=== PATIENT | female | born 1995 | race Caucasian/White ===

== ENCOUNTER → 2017-01-14 | Outpatient (REF) | payer OTHER | LOC: M SFHCCLAY 08:46 | PROVIDERS: ATTEND Nurse Practitioner | DX: Z12.4 Encounter for screening for malignant neoplasm of cervix (principal); N89.8 Other specified noninflammatory disorders of vagina ==

== ENCOUNTER → 2018-06-02 | Outpatient (REF) | payer OTHER | LOC: M SFHCCLAY 14:42 | DX: Z12.4 Encounter for screening for malignant neoplasm of cervix (principal) | CPT/HCPCS: 88142 ==

== ENCOUNTER → 2019-03-06 | Outpatient (REF) | payer OTHER | LOC: M LAB REF 15:57 | PROVIDERS: ATTEND Ophthalmology | DX: H04.012 Acute dacryoadenitis, left lacrimal gland (principal) ==

== ENCOUNTER → 2019-06-26 | Outpatient (REF) | payer OTHER | LOC: M SFHCCLAY 19:37 | PROVIDERS: ATTEND Nurse Practitioner Family | DX: Z01.419 Encounter for gynecological examination (general) (routine) without abnormal findings (principal) ==

== ENCOUNTER → 2019-07-10 | Outpatient (CLI) | payer OTHER ==
[~2019-07-10] MED LIST: E-Z-GAS II EFFERVESCENT PACKET (SODIUM BICARB./CITRIC ACID/SIMETHICONE) As Ordered ONE; E-Z-HD 98% w/w 340GM SUSP BTL As Ordered ONE; E-Z-PAQUE 96% w/w SUSP 176GM BTL As Ordered ONE
--- NOTE | 2019-07-11 09:54 | REP ---
UPPER GI AIR CONTRAST The procedure was performed under the direct supervision of Dr. Richards. The images were reviewed with Dr. Richards. The stitcher feeder film shows no organomegaly or pathological masses. The test gas pattern is nonspecific. Liquid barium and gas producing granules and given in the erect position as well as liquid barium in the prone oblique position in order to perform a double contrast upper GI examination. The oral and pharyngeal stages of deglutition are unremarkable. Esophageal transport is prompt and efficient and there is no esophagitis stricture mucosal ring or hiatal hernia. There is gastroesophageal reflux demonstrated to above the level of the denia. The stomach sotelo are normally aligned. The rugal folds are smooth and regular. There is no gastritis neoplasm or ulcer disease. The duodenal sotelo are normally aligned. The mucosal folds are smooth and regular. There is no duodenitis pancreatitis peptic ulcer disease or neoplasm. The visualized portion of the proximal small bowel appears normal in course and caliber. Impression: There is gastroesophageal reflux demonstrated to above the level of the denia. Otherwise, unremarkable double contrast upper GI examination. 1.3 minutes of fluoroscopy time was utilized for this procedure. Electronically Signed by MICHELLE Macedo 07/10/2019 04:33 P Electronically Signed by Adam Richards MD 07/11/2019 09:44 A
== END ==
LOC: M RAD 08:33
PROVIDERS: ATTEND Nurse Practitioner Family
DX: K21.9 Gastro-esophageal reflux disease without esophagitis (principal)

== ENCOUNTER → 2020-05-29 | Outpatient (REF) | payer OTHER ==
[2020-06-29 10:41] LABS: BASO % 0.5 % (0.0-1.0); EOS # 0.1 10^3/uL (0.0-0.5); EOS % 0.9 % (0.0-3.0); HEMATOCRIT 42.1 % (36.0-47.0); LYMPH # 2.1 10^3/uL (1.5-5.0); LYMPH % 32.3 % (24.0-44.0); MEAN CORPUSCULAR HEMOGLOBIN 28.3 pg (27.0-33.0); MEAN CORPUSCULAR HGB CONC 33.3 g/dl (32.0-36.5); MEAN CORPUSCULAR VOLUME 85.1 fl (80.0-96.0); MONO # 0.5 10^3/uL (0.0-0.8); MONO % 7.7 % (0.0-5.0); NEUTROPHILS # 3.7 10^3/uL (1.5-8.5); NEUTROPHILS % 58.4 % (36.0-66.0); PLATELET COUNT, AUTOMATED 283 10^3/uL (150-450); RED BLOOD COUNT 4.95 10^6/uL (4.00-5.40); WHITE BLOOD COUNT 6.4 10^3/uL (4.0-10.0)
[2020-07-13 07:13] LABS: ALBUMIN 4.4 GM/DL (3.2-5.2); ALT/SGPT 18 U/L (12-78); BILIRUBIN,TOTAL 0.5 MG/DL (0.2-1.0); BLOOD UREA NITROGEN 11 MG/DL (7-18); CALCIUM LEVEL 9.3 MG/DL (8.5-10.1); CARBON DIOXIDE LEVEL 29 MEQ/L (21-32); CHLORIDE LEVEL 105 MEQ/L (98-107); CREATININE FOR GFR 0.82 MG/DL (0.55-1.30); FREE T4 0.99 NG/DL (0.76-1.46); GLOMERULAR FILTRATION RATE > 60.0 (>60); GLUCOSE, FASTING 96 MG/DL (70-100); HCG, SERUM QUALITATIVE NEGATIVE (NEGATIVE); HEMOGLOBIN A1c 5.2 %; POTASSIUM SERUM 3.6 MEQ/L (3.5-5.1); SODIUM LEVEL 140 MEQ/L (136-145); TOTAL PROTEIN 8.2 GM/DL (6.4-8.2)
== END ==
LOC: M SFHCCLAY 06:09
PROVIDERS: ATTEND Nurse Practitioner Family
DX: R63.4 Abnormal weight loss (principal); R53.83 Other fatigue

== ENCOUNTER → 2020-07-01 | Outpatient (REF) | payer OTHER ==
[2020-07-02 16:31] LABS: CHLAMYDIA DNA AMPLIFICATION NEGATIVE (NEGATIVE); GC DNA AMPLIFICATION NEGATIVE (NEGATIVE)
== END ==
LOC: M SFHCADAM 13:27
PROVIDERS: ATTEND Nurse Practitioner Family
DX: Z12.72 Encounter for screening for malignant neoplasm of vagina (principal)

== ENCOUNTER → 2020-07-11 | Outpatient (CLI) | payer OTHER ==
[2020-07-11 13:48] LABS: BASO % 0.3 % (0.0-1.0); EOS % 0.1 % (0.0-3.0); HEMATOCRIT 39.3 % (36.0-47.0); HEMOGLOBIN 12.9 g/dl (12.0-15.5); LYMPH # 1.7 10^3/uL (1.5-5.0); LYMPH % 25.9 % (24.0-44.0); MEAN CORPUSCULAR HEMOGLOBIN 27.8 pg (27.0-33.0); MEAN CORPUSCULAR HGB CONC 32.8 g/dl (32.0-36.5); MEAN CORPUSCULAR VOLUME 84.7 fl (80.0-96.0); MONO # 0.6 10^3/uL (0.0-0.8); MONO % 8.5 % (0.0-5.0); NEUTROPHILS # 4.3 10^3/uL (1.5-8.5); NEUTROPHILS % 64.9 % (36.0-66.0); PLATELET COUNT, AUTOMATED 263 10^3/uL (150-450); RED BLOOD COUNT 4.64 10^6/uL (4.00-5.40); WHITE BLOOD COUNT 6.7 10^3/uL (4.0-10.0)
[2020-07-11 14:41] LABS: HEPATITIS C VIRUS ABY INDEX 0.1 INDEX (<0.8); HIV 1&2 SCREEN CENTAUR NEGATIVE (NEGATIVE)
== END ==
LOC: M PLALAB 10:45
PROVIDERS: ATTEND Advanced Practice Midwife
DX: Z34.01 Encounter for supervision of normal first pregnancy, first trimester (principal); Z3A.00 Weeks of gestation of pregnancy not specified

== ENCOUNTER → 2020-09-26 | Outpatient (CLI) | payer OTHER ==
--- NOTE | 2020-09-26 11:51 | REP ---
INDICATION: ANATOMY. COMPARISON: None TECHNIQUE: Real-time sonographic evaluation of the gravid uterus performed. FINDINGS: Estimated gestational age is19 weeks 0 days, EDC 02/20/2021. Today's measurements indicate appropriate growth. Presentation: Transverse head maternal left side Placenta posterior, grade 0, without evidence of placenta previa. heart rate is recorded at 150 beats per minute. Amniotic fluid is subjectively normal. Closed cervical length is measured at 3.5 cm. Biometry chart: BPD: 43 mm, 18 weeks 6 days, 46th percentile. HC: 157 mm, 18 weeks 4 days, 39th percentile AC: 129 mm, 18 weeks 3 days, 39th percentile Femur length: 29 mm, 18 weeks 6 days, 47th percentile HC to AC ratio: 1.22, normal range 1.06-1.25. Estimated weight: 252g, 28th percentile. anatomy: Cranium: Grossly normal Lateral Ventricles/Choroid Plexus: Grossly normal Posterior Fossa/Cerebellum: Grossly normal Nose/lips/profile: Not well seen due to position Four chamber heart: Grossly normal Right ventricular outflow tract: Not well seen due to position Left ventricular outflow tract: Grossly normal Left-sided stomach: Grossly normal Kidneys: Grossly normal Bladder: Grossly normal Cord Insertion: Grossly normal 3 vessel cord: Grossly normal Spine: Grossly normal IMPRESSION: Viable single intrauterine gestation as above. <Electronically signed by Adam Richards > 09/26/20 [id number]
== END ==
LOC: M WHC 09:40
PROVIDERS: ATTEND Advanced Practice Midwife
DX: Z34.82 Encounter for supervision of other normal pregnancy, second trimester (principal)

== ENCOUNTER → 2020-10-24 | Outpatient (CLI) | payer OTHER ==
--- NOTE | 2020-10-24 08:22 | REP ---
INDICATION: F/U ANATOMY COMPARISON: 09/26/2020 TECHNIQUE: Transabdominal obstetrical ultrasound with color Doppler evaluation. FINDINGS: Examination demonstrates a single live intrauterine in cephalic presentation. motion is identified by technologist. Placenta is noted posterior and grade 1 without evidence for placenta previa or abruption. Amniotic fluid volume is normal. Cervix measures 3.4 cm in length and appears closed. No evidence for nuchal cord. Gestational age by LMP 23 weeks 0 days with NANNETTE 02/20/2021. Gestational age by current measurements 22 weeks 4 days with NANNETTE 02/23/2021. FHR equals 142 beats per minute. Estimated weight 521 grams (26thpercentile). Anatomical assessment demonstrates normal structures including cranium, facial features including nose/lips, right cardiac outflow tract, stomach, cord insertion/three-vessel cord, bladder, spine. IMPRESSION: Single live intrauterine in cephalic presentation demonstrating appropriate interval growth. In conjunction with prior examination anatomical assessment is complete and normal. <Electronically signed by Gerardo Dowell > 10/24/20 [id number]
== END ==
LOC: M WHC 07:37
PROVIDERS: ATTEND Obstetrics & Gynecology
DX: Z34.02 Encounter for supervision of normal first pregnancy, second trimester (principal); Z3A.22 22 weeks gestation of pregnancy

== ENCOUNTER → 2020-11-15 | Outpatient (REF) | payer OTHER ==
[2020-11-15 13:49] LABS: HEMATOCRIT 35.1 % (36.0-47.0); HEMOGLOBIN 11.5 g/dl (12.0-15.5); MEAN CORPUSCULAR HEMOGLOBIN 29.2 pg (27.0-33.0); MEAN CORPUSCULAR HGB CONC 32.8 g/dl (32.0-36.5); MEAN CORPUSCULAR VOLUME 89.1 fl (80.0-96.0); PLATELET COUNT, AUTOMATED 202 10^3/uL (150-450); RED BLOOD COUNT 3.94 10^6/uL (4.00-5.40); WHITE BLOOD COUNT 9.3 10^3/uL (4.0-10.0)
== END ==
LOC: M PLALAB 08:16
PROVIDERS: ATTEND Advanced Practice Midwife
DX: Z34.82 Encounter for supervision of other normal pregnancy, second trimester (principal)

== ENCOUNTER → 2021-01-22 | Outpatient (REF) | payer OTHER | LOC: M SFHCWAGY 13:22 | PROVIDERS: ATTEND Advanced Practice Midwife | DX: Z36.85 Encounter for antenatal screening for Streptococcus B (principal) | CPT/HCPCS: 87081; G0463 ==

== ENCOUNTER 2021-02-25 15:35 | Inpatient (IN) | payer OTHER ==
[2021-02-25] VITALS (13 sets, daily range): BP systolic 127–148; BP diastolic 69–95
[~2021-02-25] VITALS: Ht 165.1 cm; Wt 87.8 kg
[2021-02-25] MEDS ORDERED: PRENTAB9 PO (15:53)
[2021-02-25] MEDS: miSOPROStol 50MCG 1/2 TABLET SL SCH ×2 (17:52→21:53)
[2021-02-25 18:09] LABS: HEMOGLOBIN 12.6 g/dl (12.0-15.5); MEAN CORPUSCULAR HEMOGLOBIN 27.9 pg (27.0-33.0); MEAN CORPUSCULAR HGB CONC 33.2 g/dl (32.0-36.5); MEAN CORPUSCULAR VOLUME 84.3 fl (80.0-96.0); PLATELET COUNT, AUTOMATED 206 10^3/uL (150-450); RED BLOOD COUNT 4.51 10^6/uL (4.00-5.40); WHITE BLOOD COUNT 10.6 10^3/uL (4.0-10.0)
--- NOTE | 2021-02-25 18:26 | HPEPDOC ---
Obstetrical History & Physical General Date of Admission February 25, 2021 at 15:35 History of Present Illness 25 yo G1 at 40 5/7 weeks by LMP c/w 7 weeks ultrasound (EDC=02/20/2021) presents for labor induction. She denies contractions, vaginal bleeding. good movement. 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 BREAST: . ABDOMEN: Gravid and non-tender to touch. FETUS: Is vertex (VTX) by sterile vaginal examination (SVE), fetus is vertex (VTX) by Nishant. HEART RATE: Regular rate and rhythm. LUNGS: Clear to auscultation (CTA). EXTREMITIES: No edema. No clonus. Deep tendon reflexes (DTRs) + . Vital Signs/I&O Vital Signs Date Time Temp Pulse Resp B/P (MAP) Pulse Ox O2 Delivery O2 Flow Rate FiO2 02/25/21 16:10 98.9 80 140/69 (92) Laboratory Data 24H LABS Laboratory Tests 2 02/25/21 16:42: Serology Scanned Report Hepatitis B Testing 02/25/21 17:41: Nucleated Red Blood Cells % (auto) 0.0 CBC/BMP Laboratory Tests 02/25/21 17:41 Pertinent Laboratoy Data Group B Streptococcus: Negative Vaginal Examination Dilation: 2cm Effacement: 50% Station: -2 Cervical Consistency: Soft Cervical Position: Posterior Presentation: Cephalic presentation Assessment Variability: Moderate Accelerations: Positive Decelerations: None Tocometer Contractions: Yes Frequency: irregular Assessment/Plan Assessment Pt is a 25-year-old (G)1 para (P)0 at 40+5 weeks by LMP c/w 7-week ultrasound presents to Labor and Delivery for labor induction. Plan Admit and orient. Carry Out Clerk And Shelf Stocker and consent. Diet: regular. Group B Streptococcus (GBS) negative. Labs and intravenous (IV) per unit protocol. Anticipate [normal spontaneous delivery (). C-S as appropriate. JOANA CHASE MD February 25, 2021 18:26
[2021-02-25] MEDS ORDERED: FENTANYL 2MCG/ML ROPIVACAINE 0.2% IN 0.9% NACL 100ML IVBAG As Ordered ONE (23:00)
[2021-02-25] MEDS ORDERED: FENTANYL/ROPIVACAINE/NACL BAG 100 ML EPIDURAL SCH (23:15)
[2021-02-25] MEDS ORDERED: diphenhydrAMINE 50MG/ML VIAL (J1200) IV PRN (23:15)
[2021-02-25] MEDS ORDERED: NALOXONE INJ 0.4MG/1ML VIAL (J2310 PER 1MG) IV PRN (23:15)
[2021-02-25] MEDS ORDERED: EPIDURAL COMMENT XX SCH (23:15)
[2021-02-25] MEDS ORDERED: ONDANSETRON 4MG/2ML VIAL IV PRN (23:15)
[2021-02-25] MEDS ORDERED: EPIDURAL/PCA KEYS XX PRN (23:15)
[2021-02-25] MEDS ORDERED: ePHEDrine SULFATE 25 MG/5 ML(5MG/ML) SYRINGE IV PRN (23:15)
[2021-02-25] MEDS ORDERED: REFRIGERATOR IV KEYS XX PRN (23:15)
[2021-02-25] MEDS ORDERED: LACTATED RINGER'S 1000 ML IV PRN (23:15)
[2021-02-26] VITALS (9 sets, daily range): BP systolic 117–144; BP diastolic 60–86
[2021-02-26] MEDS ORDERED: OXYTOCIN 30 UNITS IN 0.9% NaCl 500ML IV BAG (J2590) As Ordered ONE (02:53)
[2021-02-26] MEDS ORDERED: LR 1,000 ML IV ONE (03:15)
[2021-02-26] MEDS ORDERED: LR 1,000 ML IV SCH (04:00)
[2021-02-26 05:59] LABS: CORD GAS ABE V -5.4; CORD GAS HCO3 A 20.5 MEQ/L; CORD GAS HCO3 V 20.6 MEQ/L; CORD GAS O2 SAT A 44.1 %; CORD GAS O2 SAT V 63.9 %; CORD GAS PCO2 A 53.6 mmHg; CORD GAS PCO2 V 41.6 mmHg; CORD GAS PH A 7.201 UNITS; CORD GAS PH V 7.312 UNITS; CORD GAS PO2 A 22.5 mmHg; CORD GAS PO2 V 28.6 mmHg; CORD GAS SBC V 19.3 MEQ/L; CORD GAS TCO2 A 22.2 MEQ/L; CORD GAS TCO2 V 21.8 MEQ/L
[2021-02-26] MEDS ORDERED: LIDOCAINE 1% MDV 50ML VIAL As Ordered ONE (06:02)
[2021-02-26] MEDS ORDERED: ONDANSETRON 4MG/2ML VIAL IV PRN (06:20)
[2021-02-26] MEDS ORDERED: IBUPROFEN 600MG TAB PO PRN (06:20)
[2021-02-26] MEDS ORDERED: ACETAMINOPHEN TAB 650MG DOSE (2X325MG) PO PRN (06:20)
[2021-02-26] MEDS ORDERED: MEASLES,MUMPS,RUBELLA VACCINE INJ (MMR-II) (90707) SC SCH (06:20)
[2021-02-26] MEDS ORDERED: LIDOCAINE 1% MDV 20ML VIAL INFIL ONE (06:20)
[2021-02-26] MEDS ORDERED: OXYTOCIN DRIP 30 UNITS in IV 1 EA IV ONE (06:20)
[2021-02-26] MEDS ORDERED: RHOGAM 300 MCG (1500 IU) INJ (J2790) IM SCH (06:20)
[2021-02-26] MEDS ORDERED: DIBUCAINE 1% OINTMENT 30GM TOP PRN (06:20)
[2021-02-26] MEDS ORDERED: METHYLERGONOVINE MALEATE 0.2 MG TAB PO PRN (06:20)
[2021-02-26] MEDS: PRENATAL VITAMINS CHEWABLE TABLET PO SCH (08:57)
[2021-02-26] MEDS: IBUPROFEN 800 MG TAB PO PRN ×2 (09:00→20:44)
--- NOTE | 2021-02-26 15:30 | DNPDOC ---
[facility] Delivery Note Delivery Note DATE OF DELIVERY: February 26, 2021 PREDELIVERY DIAGNOSIS: 40-5/7 weeks' gestation, induction. POST DELIVERY DIAGNOSIS: Delivered. PROCEDURE: Spontaneous vaginal delivery. SECURITY BUSINESS ANALYST: Dr. Joana Chase MD ANESTHESIA: epidural. ESTIMATED BLOOD LOSS: 400 mL. FINDINGS: 9 pound 1 ounce female , Score 7/9. DELIVERY SUMMARY: Patient is a 25-year-old 1 now para 1 who was admitted to labor and delivery for labvor induction. She received 2 doses of Misoprostol. She then had Pitocin. After a 2 1/2 hour second stage of labor she had a spontaneous vaginal delivery of a 9 lb. 1 oz. female . A shoulder dystocia was encountered. Left shoulder of infant impacted behind pubic bone. It was resolved with McRobert's Maneuver, and suprapubic pressure. No nuchal cord. Cord clamped and cut. Infant handed to mother. Placenta delivered by manual extraction after 25 minutes. A 1st degree left sulcus vaginal laceration was repaired with 2-O Chromic under local anesthesia. Pt received IV Pitocin immediately after delivery of the placenta. Sponge and needle counts correct. moved both arms equally well at . JOANA CHASE MD February 26, 2021 15:30
[2021-02-27 06:00] VITALS: BP 126/60
[2021-02-27] MEDS: IBUPROFEN 800 MG TAB PO PRN ×2 (08:33→20:13)
[2021-02-27] MEDS: PRENATAL VITAMINS CHEWABLE TABLET PO SCH (08:33)
[2021-02-27] MEDS: DOCUSATE SODIUM 100MG CAPSULE PO PRN ×2 (08:33→20:13)
[2021-02-27 18:01] VITALS: BP 120/60
[2021-02-27] MEDS: ACETAMINOPHEN 500 MG TAB PO PRN (18:18)
[2021-02-28] MEDS: ACETAMINOPHEN 500 MG TAB PO PRN (02:44)
[2021-02-28] MEDS: IBUPROFEN 800 MG TAB PO PRN (05:16)
[2021-02-28 06:00] VITALS: BP 149/70
[2021-02-28] MEDS: PRENATAL VITAMINS CHEWABLE TABLET PO SCH (08:00)
== END 2021-02-28 14:05 | disposition home or self-care (01) | DRG 807 ==
LOC: M LDI 15:35 → M OBS 02-26 08:28
PROVIDERS: ADMIT Specialist; ATTEND Specialist
PROC: 3E0P7GC Introduction of Other Therapeutic Substance into Female Reproductive, Via Natural or Artificial Opening (ICD-10-PCS; 2021-02-25)
PROC: 10E0XZZ Delivery of Products of Conception, External Approach (ICD-10-PCS; principal; 2021-02-26)
PROC: 0HQ9XZZ Repair Perineum Skin, External Approach (ICD-10-PCS; 2021-02-26)
DX: O48.0 Post-term pregnancy (principal); Z37.0 Single live birth; Z3A.40 40 weeks gestation of pregnancy; O66.0 Obstructed labor due to shoulder dystocia; O70.0 First degree perineal laceration during delivery